=== PATIENT | female | born 1965 | race Caucasian/White ===

== ENCOUNTER 2017-09-01 22:32 | Emergency (ER) | payer MEDICAID ==
[~2017-09-01] VITALS: Ht 149.9 cm; Wt 54.6 kg
[2017-09-01 22:42] VITALS: Ht 149.9 cm; Wt 54.6 kg
[2017-09-01 23:30] LABS: UA SPECIFIC GRAVITY 1.025 (1.005-1.035); microscopic required? YES; urine erythrocyte 3+ (NEGATIVE)
[2017-09-01 23:49] VITALS: BP 145/81
== END 2017-09-01 23:49 | disposition home or self-care (01) ==
LOC: ED 22:32
PROVIDERS: Emergency Medicine
DX: N30.91 Cystitis, unspecified with hematuria (principal); Z88.6 Allergy status to analgesic agent